=== PATIENT | male | born 1975 | race Asian ===

== ENCOUNTER 2017-05-08 08:27 | Observation (INO) | payer BC, OTHER ==
[~2017-05-08] VITALS: Ht 180.3 cm; Wt 93.0 kg
[2017-05-08] VITALS (9 sets, daily range): BP systolic 121–157; BP diastolic 86–107; TEMP 97.9–98.8; Ht 180.3 cm; Wt 93.0 kg
[~2017-05-08 08:27] MED LIST: ASA LO-DOSE81 MG PO; CARV12.5 PO; HYDRALAZINE50 MG PO; IMDUR30 MG PO; LISI20TA11 PO
[2017-05-08 08:51] LABS: PLATELET COUNT 222 K/uL (142-355)
[2017-05-08 09:19] LABS: POTASSIUM 3.2 mmol/L (3.6-5.2); SODIUM 142 mmol/L (136-145)
--- NOTE | 2017-05-08 18:00 | NUR ---
[address] DEL VALLE VIA PHONE AT THIS TIME OF 0.11 NO NEW ORDERS REC'D AT THIS TIME.
[2017-05-08] MEDS ORDERED: AMLO2.5T PO (19:14)
[2017-05-08] MEDS ORDERED: CARV12.5 PO (19:15)
[2017-05-09 00:15] VITALS: BP 122/83; TEMP 98.7
[2017-05-09 07:17] LABS: PLATELET COUNT 218 K/uL (142-355)
[2017-05-09 07:52] LABS: POTASSIUM 3.2 mmol/L (3.6-5.2); SODIUM 141 mmol/L (136-145)
[2017-05-09 08:00] VITALS: BP 147/106; TEMP 98.1
[2017-05-09 12:00] VITALS: BP 123/84; TEMP 98.4
--- NOTE | 2017-05-09 17:31 | NUR ---
IV AND TELE D/C'D. PT INSTURCTED TO MAKE A F/U APT WITH PCP ([facility] [place]) IN 3-5 DAYS. D/C INSTRUCTIONS GIVEN. PT VERBALIZED UNDERSTANDING AND HAS NO COMPLAINTS OR CONCERNS AT THIS TIME. PT ACCOMPANIED BY NURSE AND WALKED OUT TO VEHICLE @4578.
== END 2017-05-09 15:25 | disposition home or self-care (01) ==
LOC: ED 08:27 → MED/SURG 10:27
PROVIDERS: Emergency Medicine
DX: R07.9 Chest pain, unspecified (principal); I10 Essential (primary) hypertension
CPT/HCPCS: 36415; 80053; 82550; 83735; 84484; 85027; 85610; 85730; 93005; 99220; 99283; G0378; J1650

== ENCOUNTER → 2019-10-16 14:45 | Outpatient (CLI) | payer OTHER ==
[~2019-10-16 14:45] MED LIST changes: +AMLO2.5T PO
== END | disposition home or self-care (01) ==
LOC: AMB 14:45
DX: R07.9 Chest pain, unspecified (principal); I48.91 Unspecified atrial fibrillation; R94.31 Abnormal electrocardiogram [ECG] [EKG]; R06.02 Shortness of breath